=== PATIENT | female | born 2000 | race Two or more races ===

== ENCOUNTER → 2021-09-20 09:36 | Outpatient (BNVA) | payer OTHER, MEDICAID, SELFPAY | PROVIDERS: Visit Provider Psychiatry & Neurology Neurology | DX: G44.009 Cluster headache syndrome, unspecified, not intractable (principal); M54.2 Cervicalgia | CPT/HCPCS: 99212 ==

== ENCOUNTER 2022-05-24 13:00 | Outpatient (RCR) | payer OTHER, SELFPAY | END 2022-07-04 10:05 | disposition home or self-care (01) | LOC: HO.PT 13:00 | PROVIDERS: Visit Provider Psychiatry & Neurology Neurology | DX: N81.89 Other female genital prolapse (principal) | CPT/HCPCS: 97110; 97112; 97140; 97162 ==